=== PATIENT | female | born 1970 | race American Indian/Alaskan Native ===

== ENCOUNTER 2017-02-07 12:01 | Emergency (ER) | payer OTHER ==
--- NOTE | 2017-02-07 12:08 | Emergency Department Report ---
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 Due to findings the following was ordered: xr ED Disposition for MSE Condition: Stable
--- NOTE | 2017-02-07 12:58 | XRay Report ---
Right ankle: Trauma, pain. There is swelling adjacent to the lateral malleolus. There is evidence of a joint effusion. No fracture and no dislocation identified. Small plantar calcaneal spur. Impression: Lateral soft tissue injury.
[2017-02-07] MEDS ORDERED: TENORMIN PO ONE (14:14)
[2017-02-07] MEDS ORDERED: MOTRIN PO ONE (14:14)
[2017-02-07 15:34] VITALS: BP 165/119
--- NOTE | 2017-02-07 18:43 | Emergency Department Report ---
Entered by KARIME THOMAS, acting as scribe for RAIN BLANCO NP. ED Lower Extremity HPI - General Chief Complaint: Extremity Injury, Lower Stated Complaint: RIGHT ANKLE INJURY Time Seen by Provider: 02/07/17 12:04 Source: patient Mode of arrival: Ambulatory Limitations: Physical Limitation - History of Present Illness Initial Comments: This is a 46 y/o female, nontoxic, well nourished in appearance, no acute signs of distress with a PMHx of HTN and high cholesterol presents right ankle pain that began this morning at 11:05. Patient states she twisted her ankle walking off a curb at work. Rates pain 10/10 in severity, which she describes as burning and aching in quality. Aggravated with movement, palpation, and weight bearing, and alleviated with immobilization. Patient reports associated right ankle swelling, but she denies fever, chills, chest pain, SOB, [place] or dizziness, numbness, and tingling. Patient states she is aware of her elevated blood pressure and notes that her blood pressure usually runs high. Reports she didn' t take her HTN medication, atenolol, this morning and does have a PCP that she follows for her hypertension. Applied ice SODA JERKER. Allergic to etodolac. Complaint: ankle injury Onset/Timin -: This morning Time: 11:05 Injury: Ankle: Right Type of Injury: unknown Place: work, street/outdoors Severity: severe Severity scale (0 -10): 10 Improves With: immobilization Worsens With: weight bearing, movement, palpation Context: fall Associated Symptoms: swelling (RT ankle), able to partially bear weight, ambulatory. denies: snap/pop sensation, numbness, tingling Treatments Prior to Arrival: cold therapy - Related Data Home Medications Medication Instructions Recorded Confirmed Last Taken Atenolol [Tenormin] 25 mg PO QHS 02/07/17 02/07/17 02/05/17 21:00 AtorvaSTATin [Lipitor] 40 mg PO QDAY 02/07/17 02/07/17 02/06/17 08:00 Ipratropium (Nf) [Atrovent] 2 puff IH Q6HR PRN 02/07/17 02/07/17 Unknown Previous Rx's Medication Instructions Recorded Last Taken Type Ibuprofen [Motrin 600 MG tab] 600 mg PO Q8H PRN #30 tablet 02/07/17 Unknown Rx Allergies Allergy/AdvReac Type Severity Reaction Status Date / Time etodolac [From Lodine] Allergy Rash Verified 02/07/17 12:10 ED Review of Systems Comment: All other systems reviewed and negative Constitutional: denies: chills, fever Eyes: denies: eye pain, eye discharge, vision change ENT: denies: ear pain, throat pain Respiratory: denies: cough, shortness of breath, wheezing Cardiovascular: denies: chest pain, palpitations Endocrine: no symptoms reported Gastrointestinal: denies: abdominal pain, nausea, diarrhea Genitourinary: denies: urgency, dysuria, discharge Musculoskeletal: joint swelling (RT ankle), arthralgia (RT ankle pain). denies : back pain, myalgia Skin: denies: rash, lesions Neurological: denies: headache, weakness, numbness, paresthesias Psychiatric: denies: anxiety, depression Hematological/Lymphatic: denies: easy bleeding, easy bruising ED Past Medical Hx - Past Medical History Previous Medical History?: Yes Hx Hypertension: Yes Additional medical history: HIGH CHOLESTEROL - Surgical History Past Surgical History?: Yes Hx Cholecystectomy: Yes Additional Surgical History: RIGHT KNEE X 2. LEFT KNEE - TEEN - Family History Family history: no significant - Social History Smoking Status: Never Smoker Substance Use Type: None - Medications Home Medications: Home Medications Medication Instructions Recorded Confirmed Last Taken Type Atenolol [Tenormin] 25 mg PO QHS 02/07/17 02/07/17 02/05/17 21:00 History AtorvaSTATin [Lipitor] 40 mg PO QDAY 02/07/17 02/07/17 02/06/17 08:00 History Ibuprofen [Motrin 600 MG tab] 600 mg PO Q8H PRN #30 tablet 02/07/17 Unknown Rx Ipratropium (Nf) [Atrovent] 2 puff IH Q6HR PRN 02/07/17 02/07/17 Unknown History ED Physical Exam - General Limitations: Physical Limitation General appearance: alert, in no apparent distress - Head Head exam: Present: atraumatic, normocephalic - Eye Eye exam: Present: normal appearance, PERRL, EOMI. Absent: scleral icterus, conjunctival injection, nystagmus, periorbital swelling, periorbital tenderness Pupils: Present: normal accommodation - ENT ENT exam: Present: normal exam, normal orophraynx, mucous membranes moist, TM's normal bilaterally, normal external ear exam - Neck Neck exam: Present: normal inspection, full ROM. Absent: tenderness, meningismus, lymphadenopathy, thyromegaly - Respiratory Respiratory exam: Present: normal lung sounds bilaterally. Absent: respiratory distress, wheezes, rales, rhonchi, stridor, chest wall tenderness, accessory muscle use, decreased breath sounds, prolonged expiratory - Cardiovascular Cardiovascular Exam: Present: regular rate, normal rhythm, normal heart sounds. Absent: systolic murmur, diastolic murmur, rubs, gallop - GI/Abdominal GI/Abdominal exam: Present: soft, normal bowel sounds. Absent: distended, tenderness, guarding, rebound, rigid - Rectal Rectal exam: Present: deferred - Extremities Exam Extremities exam: Present: full ROM (painful dorsiflexion and plantar flexion to RT ankle), tenderness (RT ankle), normal capillary refill, joint swelling ( RT ankle). Absent: normal inspection, pedal edema, calf tenderness - Expanded Lower Extremity Exam Right Hip exam: Present: normal inspection, full ROM, external rotation, internal rotation, pelvic stability. Absent: tenderness, swelling, abrasion, laceration , ecchymosis, deformity, crepidus, dislocation, erythema, shortening Upper Leg exam: Present: normal inspection, full ROM. Absent: tenderness, swelling, abrasion, laceration, ecchymosis, deformity, crepidus, dislocation, erythema Knee exam: Present: normal inspection, full ROM, full knee extension. Absent: tenderness, swelling, abrasion, laceration, ecchymosis, deformity, crepidus, dislocation, erythema, effusion, pain w/ pronation/supination, posterior draw sign, pain/laxity with valgus, pain/laxity with varus Lower Leg exam: Present: normal inspection, full ROM. Absent: tenderness, swelling, abrasion, laceration, ecchymosis, deformity, crepidus, dislocation, erythema, palpable cord, Jesse's sign Ankle exam: Present: full ROM (painful dorsiflexion and plantar flexion to RT ankle), tenderness, swelling. Absent: normal inspection, abrasion, laceration, ecchymosis, deformity, crepidus, dislocation, erythema, anterior draw sign Foot/Toe exam: Present: normal inspection, full ROM. Absent: tenderness, swelling, abrasion, laceration, ecchymosis, deformity, crepidus, dislocation, erythema, amputation, puncture wound, foreign body, calcaneal tenderness, tenderness at base of 5th metatarsal, nail avulsion, subungual hematoma Neuro vascular tendon exam: Present: no vascular compromise. Absent: pulse deficit, abnormal cap refill, motor deficit, sensory deficit, tendon deficit, extremity cold to touch, pallor, abnormal 2-point discrimination, decreased fine /light touch, foot drop, peroneal nerve deficit, significant pain with passive ROM of distal joint Gait: Positive: observed and limited by pain - Back Exam Back exam: Present: normal inspection, full ROM. Absent: tenderness, CVA tenderness (R), CVA tenderness (L), muscle spasm, paraspinal tenderness, vertebral tenderness, rash noted - Neurological Exam Neurological exam: Present: alert, oriented X3, CN II-XII intact, normal gait ( limited due to RT ankle pain), reflexes normal. Absent: motor sensory deficit - Psychiatric Psychiatric exam: Present: normal affect, normal mood - Skin Skin exam: Present: warm, dry, intact. Absent: rash ED Course Vital Signs 02/07/17 12:12 Temperature 98.2 F Pulse Rate 93 H Respiratory 100 H Rate Blood Pressure 175/115 - Reevaluation(s) Reevaluation #1: 02/07/17 14:50 Patient is speaking in full sentences with no signs of distress. Reevaluation #2: 02/07/17 14:52 Patient was notified about her blood pressure and she stated she knows and has a PCP and stated she messed her blood pressure medication. Reevaluation #3: 02/07/17 14:53 Patient received her Atenolol in the ED and instructed to take medication as prescribed and follow-up with PCP in 24 hours for her hypertension. Reevaluation #4: 02/07/17 15:30 Blood pressure is still elevated and I will monitor the patient until b/p is lower for d/c. Reevaluation #5: 02/07/17 15:30 Patient is signing AMA for her blood pressure. I instrcuted and educated my concerns of elevated B/P but patient stated this is normal for and wants to sign AMA. ED Lower Extremity MDM - Radiology Data Radiology results: report reviewed interpreted by me: Dr. Alexander Lateral soft tissue swelling. No fracture and no dislocation identified./ ED Disposition Clinical Impression: Ankle sprain, Hypertension Disposition: DC-07 LEFT AGAINST MED ADVICE Is pt being admited?: No Does the pt Need Aspirin: No Condition: Stable Instructions: Ibuprofen (By mouth), Ankle Sprain (ED), Crutch Instructions (ED) , Hypertension (ED), RICE Therapy (ED) Additional Instructions: Follow-up with your primary care doctor in 24 hours for your high blood pressure. Continue taking blood pressure medication as prescribed by a primary care doctor. Follow up with a orthopedic doctor in 3-5 days or symptoms worsen or continue her to the emergency room as soon as possible. Rest, elevate, ice extremity. Prescriptions: Ibuprofen [Motrin 600 MG tab] 600 mg PO Q8H PRN #30 tablet PRN Reason: Pain Referrals: PRIMARY CARE, [Primary Care Provider] - 3-5 Days MELISSA MURILLO MD [Staff Physician] - 3-5 Days MARITZA THOMASON MD [Staff Physician] - 3-5 Days [facility] [Outside] - 3-5 Days Forms: Work/School Release Form(ED) This documentation as recorded by the WILLIAM nuñez JASMINE,accurately reflects the service I personally performed and the decisions made by me,RAIN BLANCO, CARLOS EDUARDO.
== END 2017-02-07 15:33 | disposition left against medical advice (07) ==
LOC: ED 12:01
DX: S93.401A Sprain of unspecified ligament of right ankle, initial encounter (principal); I10 Essential (primary) hypertension; E78.00 Pure hypercholesterolemia, unspecified; Z88.8 Allergy status to other drugs, medicaments and biological substances; X58.XXXA Exposure to other specified factors, initial encounter; Y93.89 Activity, other specified; Y99.9 Unspecified external cause status; Y92.89 Other specified places as the place of occurrence of the external cause
CPT/HCPCS: 99284